=== PATIENT | female | born 1950 | race Caucasian/White ===

== ENCOUNTER 2022-12-09 07:05 | Outpatient (CLI) | payer MEDICARE, SELFPAY ==
--- NOTE | ~2022-12-09 | CT_ITS ---
CT of the Abdomen and Pelvis: Indication: Hematuria Technique: 2.5 mm axial scans were obtained through the abdomen and pelvis prior to and following in travenous administration of 130 cc of Omnipaque 350. Dose reduction technique was used on this scan b y utilizing automated exposure control and iterative reconstruction technique. The dose-length produc t (DLP) was 1723.39 mGy-cm. Findings: Scans through the lung bases are unremarkable. The liver, spleen, pancreas, adrenals and kidneys are within normal limits. Probable tiny gallstones present. No evidence of aortic aneurysm. No lymphadenopathy. No bowel obstruction or bowel wall thickening. There is no evidence to suggest acute appendicitis. Images through the pelvis were performed. Urinary bladder unremarkable. There is apparent marked thic kening of the endometrium to 3.1 cm. Calcified uterine fibroid noted. Impression: Marked endometrial thickening. This is suspicious for endometrial carcinoma. Additional workup to con firm or exclude this diagnosis is required. No etiology for hematuria evident otherwise. Is it possible there is vaginal bleeding rather than lizz e hematuria? Calcified uterine fibroid. Cholelithiasis. Reviewed, dictated and finalized at [facility]. SPORTATION SECURITY OFFICER Impression: Marked endometrial thickening. This is suspicious for endometrial carcinoma. Ad ditional workup to confirm or exclude this diagnosis is required. No etiology for hematuria evident otherwise. Is it possible there is vaginal bl eeding rather than true hematuria? Calcified uterine fibroid. Cholelithiasis.
--- NOTE | ~2022-12-09 | XR_ITS ---
Supine and upright views of the abdomen Clinical history: Hematuria Findings: Bowel gas pattern is nonspecific. No evidence for obstruction or free air. Calcified uterin e fibroids are present. 2 mm calcification noted in the left midabdomen, probably medial to the renal shadow. Probable calcified pelvic phleboliths. Osseous structures are intact. Impression: Possible 2 mm proximal left ureteral stone, versus other soft tissue calcification. Calcified uterine fibroids. Reviewed, dictated and finalized at [facility]. TEGIC ACCOUNTS MANAGER Impression: Possible 2 mm proximal left ureteral stone, versus other soft tissue calcificat ion. Calcified uterine fibroids.
[2022-12-09 07:33] LABS: Estimated Glomerular Filt Rate > 60
== END 2022-12-09 07:06 | disposition home or self-care (01) ==
LOC: ANHIMG 07:12
PROVIDERS: PCP Family Medicine; Visit Provider Urology
DX: R31.0 Gross hematuria (principal); D25.9 Leiomyoma of uterus, unspecified; K80.20 Calculus of gallbladder without cholecystitis without obstruction
CPT/HCPCS: 74018; 74178; Q9967